=== PATIENT | male | born 1990 | race Caucasian/White ===

== ENCOUNTER 2020-11-23 15:45 | Emergency (ER) | payer BC ==
[~2020-11-23] VITALS: Ht 170.2 cm; Wt 109.5 kg
[~2020-11-23 15:45] MED LIST: NO HOME MEDICATIONS
[2020-11-23 15:56] VITALS: TEMP 97.6
[2020-11-23 16:26] LABS: COLLECTION METHOD CLEAN CATCH
[2020-11-23 16:32] LABS: PH 6 (5-8); SQUAMOUS EPITHELIAL None Seen /hpf; URINE APPEARANCE Clear; URINE BACTERIA None Seen /hpf; URINE BILIRUBIN Negative (NEGATIVE); URINE BLOOD Negative (NEGATIVE); URINE COLOR Colorless; URINE GLUCOSE Negative (NEGATIVE); URINE KETONE Negative (NEGATIVE); URINE LEUKOCYTE ESTERASE Negative (NEGATIVE); URINE NITRATE Negative (NEGATIVE); URINE PROTEIN(semi-quant) Negative (NEGATIVE); URINE RBC None Seen /hpf; URINE UROBILINOGEN Negative (NEGATIVE)
[2020-11-23] MEDS ORDERED: NAPROXEN 3375 MG/TAB PO (16:45)
[2020-11-23] MEDS ORDERED: DOXYCYCLINE HY100 MG PO (16:45)
[2020-11-23 16:54] VITALS: BP 137/89; PULSE 65
== END 2020-11-23 16:54 | disposition home or self-care (01) ==
LOC: COL.ER 15:45
PROVIDERS: Emergency Medicine
DX: N45.1 Epididymitis (principal)